=== PATIENT | female | born 1960 | race African-American/Black ===

== ENCOUNTER 2017-11-27 13:53 | Inpatient (IN) | payer OTHER ==
[2017-11-27 16:45] VITALS: BMI 32.2
--- NOTE | 2017-11-27 16:55 | HP ---
Admission ROS [facility] - [facility] Allergies/Adverse Reactions: Allergies Allergy/AdvReac Type Severity Reaction Status Date / Time No Known Allergies Allergy Verified 11/27/17 17:28 History of Present Illness: patient here requesting rehab from opiates and benzo use , s/p detox at [facility] , d/c 11/26/17 , states currently some tremors and chills . denies use since d/c heroin use : 1 bundle/day x 30 yrs , denies ivdu benzo use : klonopin, ambien utox mop, bzo, mtd david 0.000 p71 pmhx : denies pshx : denies psych : depresion tobacco : 3 cigs / day ,refuses nrt Exam Limitations: No Limitations - Ebola screening Have you traveled outside of the country in the last 21 days: No Have you had contact with anyone from an Ebola affected area: No Have you been sick,other than usual withdrawal symptoms: No Do you have a fever: No - Review of Systems Constitutional: Chills EENT: reports: No Symptoms Reported, Other (reading glasses) Respiratory: reports: No Symptoms reported Cardiac: reports: No Symptoms Reported GI: reports: No Symptoms Reported : reports: No Symptoms Reported Musculoskeletal: reports: No Symptoms Reported Integumentary: reports: No Symptoms Reported Neuro: reports: No Symptoms reported Endocrine: reports: No Symptoms Reported Hematology: reports: No Symptoms Reported Psychiatric: reports: Judgement Intact, Orientated x3, Anxious, other (see hpi) Other Systems: Reviewed and Negative Patient History - Patient Medical History Hx Anemia: Yes (NO CURRENT MEDS) Hx Asthma: No Hx Chronic Obstructive Pulmonary Disease (COPD): No Hx Cardiac Disorders: No Hx Hypertension: No Hx Hypercholesterolemia: No HX Cerebrovascular Accident: No Hx Seizures: No Hx Diabetes: No Hx Gastrointestinal Disorders: No Hx Genitourinary Disorders: No Hx Sexually Transmitted Disorders: No Hx Renal Disease (ESRD): No Hx Thyroid Disease: No Hx Human Immunodeficiency Virus (HIV): No (NEGATIVE HX) Hx Hepatitis C: No Hx Depression: Yes Hx Suicide Attempt: No Hx Schizophrenia: No - Patient Surgical History Past Surgical History: No - PPD History Date: 09/10/14 - Reproductive History Last Menstrual Period: 02/03/01 - Smoking Cessation Smoking history: Current every day smoker Have you smoked in the past 12 months: Yes Aproximately how many cigarettes per day: 20 Cigars Per Day: 0 Hx Chewing Tobacco Use: No Initiated information on smoking cessation: No - Substances Abused Heroin Route: Inhalation Frequency: Daily Amount used: 10-20 BAGS Age of first use: 22 Date of Last Use: 11/22/17 Benzodiazepine (Klonopin) Route: Oral Frequency: Daily Amount used: 4MG Age of first use: 56 Date of Last Use: 11/22/17 Family Disease History - Family Disease History Family Disease History: Other: Mother (HTN, CVA) Admission Physical Exam [facility] - Vital Signs Vital Signs: Vital Signs - 24 hr 11/27/17 16:42 Temperature 97.5 F L Pulse Rate 71 Respiratory 18 Rate Blood Pressure 118/72 - Physical General Appearance: Yes: Within Normal Limits, Nourished, Appropriately Dressed , Mild Distress HEENTM: Yes: EOMI, Hearing grossly Normal, Normal ENT Inspection, Normocephalic , Normal Voice, DONYA, Pharynx Normal, Other (upper and lower dentures dilated pupils) Respiratory: Yes: Within Normal Limits, Chest Non-Tender, Lungs Clear, Normal Breath Sounds, No Respiratory Distress, No Accessory Muscle Use Neck: Yes: Within Normal Limits, No masses,lesions,Nodules, Trachea in good position Cardiology: Yes: Regular Rhythm, Regular Rate, S1, S2, Diastolic Murmur Abdominal: Yes: Within Normal Limits, Normal Bowel Sounds, Non Tender, Flat, Soft Genitourinary: Yes: Within Normal Limits Back: Yes: Within Normal Limits, Normal Inspection Musculoskeletal: Yes: Within Normal Limits, full range of Motion, Gait Steady, Pelvis Stable Extremities: Yes: Within Normal Limits, Normal Capillary Refill, Normal Inspection, Normal Range of Motion, Non-Tender Neurological: Yes: Within Normal Limits, Fully Oriented, Alert, Motor Strength 5 /5, Normal Mood/Affect, Normal Response Integumentary: Yes: Within Normal Limits, Normal Color, Dry, Warm - Diagnostic (1) Nicotine dependence Current Visit: No Status: Acute Qualifiers: Nicotine product type: cigarettes Substance use status: uncomplicated Qualified Code(s): F17.210 - Nicotine dependence, cigarettes, uncomplicated (2) Opioid dependence Current Visit: No Status: Acute Qualifiers: Substance use status: uncomplicated Qualified Code(s): F11.20 - Opioid dependence, uncomplicated S Breath Alcohol Content Breath Alcohol Content: 0 Urine Pregancy Test - Result Urine Test Results: Negative- NO Line Present Urine Drug Screen - Results Drug Screen Negative: No Urine Drug Screen Results: OPI-Opiates, BZO-Benzodiazepines, MTD-Methadone
[2017-11-27] MEDS ORDERED: IBUPROFEN 400 MG TABLET (FP) PO PRN (17:01)
[2017-11-27] MEDS ORDERED: MAGNESIUM CITRATE 300 ML BOTTLE PO PRN (17:01)
[2017-11-27] MEDS ORDERED: LOPERAMIDE HCL 2 MG CAPSULE PO PRN (17:01)
[2017-11-27] MEDS ORDERED: MAGNESIUM HYDROX 2400MG/30ML ORAL SUSPENSION 30 ML CUP PO PRN (17:01)
[2017-11-27] MEDS ORDERED: MAG HYDROX/AL HYDROX/SIMETH 30 ML UNIT-DOSE CUP PO PRN (17:01)
[2017-11-27] MEDS ORDERED: ACETAMINOPHEN 325 MG TABLET (FP) PO PRN (17:01)
[2017-11-27] MEDS ORDERED: P-EPHED 60MG/TRIPROLIDI 2.5MG TABLET PO PRN (17:01)
[2017-11-27] MEDS ORDERED: guaiFENesin/D-METHORPHAN HB 10 ML UNIT-DOSE CUPS PO PRN (17:01)
[2017-11-27] MEDS ORDERED: MENTHOL/PHENOL 1 EACH UD MM PRN (17:01)
[2017-11-27] MEDS: THIAMINE HCL 100 MG TABLET (FP) PO SCH (22:35)
--- NOTE | 2017-11-28 08:36 | HP ---
Psychiatrist Admission - Data Date of interview: 11/28/17 Admission source: [facility] detox Identifying data: This is the first admission to [address] [place] [address] for this 57 years old AA single mother of 4 adult children, resides with her 26 yo son,supported by [facility]. Medical History: History of anemia. Psychiatric History: Patient has long history of depression,anxiety,mood instabilty.she started to see a psychiatrist in her early 40 th to address drug use,mood instability.She was dx with Mood disorder,Bipolar disorder.patient reports one psychiatric hospitalization to [facility] about 3 years ago due to depressed mood,anxiety,drug abuse.She sees at [facility] in the [place].She is on Seroquel 100 mg po hs.She was also on Ambien,Clonopin PRN. Physical/Sexual Abuse/Trauma History: Patient is not willing to discuss this at present. Vital Signs: Vital Signs - 24 hr 11/27/17 11/28/17 11/28/17 16:42 00:30 07:10 Temperature 97.5 F L 98.1 F Pulse Rate 71 91 H Respiratory 18 16 18 Rate Blood Pressure 118/72 114/70 Allergies/Adverse Reactions: Allergies Allergy/AdvReac Type Severity Reaction Status Date / Time No Known Allergies Allergy Verified 11/27/17 17:28 Concur with the findings of this exam: Yes - Substance Abuse/Tx History Hx Alcohol Use: No Hx Substance Use: Yes (heroin (sniffing) since 24 yo,10-20 bags daily,Xanax since 24 yo) Substance Use Type: Heroin, Tranquilizers Hx Substance Use Treatment: Yes (no significant abstinence) Mental Status Exam - Mental Status Exam Alert and Oriented to: Time, Place, Person Cognitive Function: Grossly Intact Patient Appearance: Unkempt Mood: Anxious, Irritable Affect: Labile Patient Behavior: Restless, Guarded, Distractible Speech Pattern: Clear Voice Loudness: Normal Thought Process: Goal Oriented Thought Disorder: Not Present Hallucinations: Denies Suicidal Ideation: Denies Homicidal Ideation: Denies Insight/Judgement: Fair Sleep: Fair Appetite: Good Muscle strength/Tone: Normal Gait/Station: Normal Psychiatric Findings - Problem List ([place] 1, 2,3) (1) Nicotine dependence Current Visit: Yes Status: Chronic Qualifiers: Nicotine product type: cigarettes Substance use status: uncomplicated Qualified Code(s): F17.210 - Nicotine dependence, cigarettes, uncomplicated (2) Opioid dependence Current Visit: Yes Status: Chronic Qualifiers: Substance use status: uncomplicated Qualified Code(s): F11.20 - Opioid dependence, uncomplicated (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 Will monitor progress.
[2017-11-28] MEDS: PRENATAL VITAMINS W/ FOLIC ACID TABLET (FP) PO SCH ×2 (10:19→10:21)
[2017-11-28] MEDS: hydrOXYzine PAMOATE 50 MG CAPSULE (FP) PO PRN ×3 (12:02→21:15)
--- NOTE | 2017-11-28 13:30 | PN ---
[facility] Progress Note Note: Vital Signs Temperature 98.1 F 11/28/17 07:10 Pulse Rate 91 H 11/28/17 07:10 Respiratory Rate 18 11/28/17 07:10 Blood Pressure 114/70 11/28/17 07:10 O2 Sat by Pulse Oximetry (%) X-ray reports received from [facility] from x-ray re: two views on . Cxray results negative for acute pathology and findings are WNL. Continue to monitor
[2017-11-28 14:34] LABS: HEMATOCRIT 41.4 % (32.4-45.2); HEMOGLOBIN 13.4 GM/dL (10.7-15.3); MCH 29.5 pg (25.7-33.7); MCHC 32.5 g/dl (32.0-36.0); MEAN PLT VOLUME 8.7 fl (7.5-11.1); PLATELET COUNT 298 K/MM3 (134-434); RBC 4.55 M/mm3 (3.60-5.2); RDW 14.2 % (11.6-15.6); WHITE BLOOD COUNT 4.5 K/mm3 (4.0-10.0)
[2017-11-28 14:57] LABS: ALBUMIN 4.1 g/dl (3.4-5.0); ALK PHOS 101 U/L (45-117); ANION GAP 5 MMOL/L (8-16); BILIRUBIN,TOTAL 0.4 mg/dL (0.2-1); BLOOD UREA NITROGEN 21 mg/dL (7-18); CALCIUM 9.8 mg/dL (8.5-10.1); CHLORIDE 104 mmol/L (98-107); CO2 29 mmol/L (21-32); CREATININE 1.1 mg/dL (0.55-1.3); GLUCOSE,RANDOM 97 mg/dL (74-106); POTASSIUM 4.9 mmol/L (3.5-5.1); SGOT/AST 30 U/L (15-37); SGPT/ALT 53 U/L (13-61); SODIUM 137 mmol/L (136-145)
[2017-11-28] MEDS: THIAMINE HCL 100 MG TABLET (FP) PO SCH (21:15)
[2017-11-28] MEDS: QUEtiapine FUMARATE 100 MG TABLET (FP) PO SCH (21:16)
[2017-11-28] MEDS: DOXEPIN HCL 50 MG CAPSULE PO SCH (21:16)
[2017-11-29] MEDS: PRENATAL VITAMINS W/ FOLIC ACID TABLET (FP) PO SCH (10:33)
[2017-11-29] MEDS: hydrOXYzine PAMOATE 50 MG CAPSULE (FP) PO PRN ×2 (10:34→19:12)
--- NOTE | 2017-11-29 15:19 | PN ---
S Progress Note Note: In opiate and benzo remission. CBCD WBC 4.5 K/mm3 (4.0-10.0) 11/28/17 11:20 RBC 4.55 M/mm3 (3.60-5.2) 11/28/17 11:20 Hgb 13.4 GM/dL (10.7-15.3) 11/28/17 11:20 Hct 41.4 % (32.4-45.2) 11/28/17 11:20 MCV 91.0 fl (80-96) 11/28/17 11:20 MCHC 32.5 g/dl (32.0-36.0) 11/28/17 11:20 RDW 14.2 % (11.6-15.6) 11/28/17 11:20 Plt Count 298 K/MM3 (134-434) D 11/28/17 11:20 MPV 8.7 fl (7.5-11.1) 11/28/17 11:20 CMP Sodium 137 mmol/L (136-145) 11/28/17 11:20 Potassium 4.9 mmol/L (3.5-5.1) 11/28/17 11:20 Chloride 104 mmol/L (98-107) 11/28/17 11:20 Carbon Dioxide 29 mmol/L (21-32) 11/28/17 11:20 Anion Gap 5 MMOL/L (8-16) L 11/28/17 11:20 BUN 21 mg/dL (7-18) H 11/28/17 11:20 Creatinine 1.1 mg/dL (0.55-1.3) 11/28/17 11:20 Creat Clearance w eGFR 50.84 (>60) 11/28/17 11:20 Random Glucose 97 mg/dL (74-106) 11/28/17 11:20 Calcium 9.8 mg/dL (8.5-10.1) 11/28/17 11:20 Total Bilirubin 0.4 mg/dL (0.2-1) 11/28/17 11:20 AST 30 U/L (15-37) 11/28/17 11:20 ALT 53 U/L (13-61) 11/28/17 11:20 Alkaline Phosphatase 101 U/L (45-117) 11/28/17 11:20 Total Protein 8.0 g/dl (6.4-8.2) 11/28/17 11:20 Albumin 4.1 g/dl (3.4-5.0) 11/28/17 11:20 Labs reviewed. Continue rehab. Order u/a.
[2017-11-29] MEDS: MELATONIN 5 MG TABLETS PO PRN (21:17)
[2017-11-29] MEDS: QUEtiapine FUMARATE 100 MG TABLET (FP) PO SCH (21:17)
[2017-11-29] MEDS: DOXEPIN HCL 50 MG CAPSULE PO SCH (21:17)
[2017-11-29] MEDS: THIAMINE HCL 100 MG TABLET (FP) PO SCH (21:17)
[2017-11-30] MEDS: PRENATAL VITAMINS W/ FOLIC ACID TABLET (FP) PO SCH (10:33)
[2017-11-30] MEDS: hydrOXYzine PAMOATE 50 MG CAPSULE (FP) PO PRN (10:33)
--- NOTE | 2017-11-30 14:50 | EKG ---
Test Reason : Blood Pressure : / mmHG Vent. Rate : 066 BPM Atrial Rate : 066 BPM P-R Int : 168 ms QRS Dur : 080 ms QT Int : 410 ms P-R-T Axes : 056 048 043 degrees QTc Int : 429 ms SINUS RHYTHM WITH MARKED SINUS ARRHYTHMIA OTHERWISE NORMAL ECG NO PREVIOUS ECGS AVAILABLE Confirmed by TACOS WHITTAKER MD ([id number]) on 11/30/2017 2:50:20 PM Referred By: Confirmed By:TACOS WHITTAKER MD
[2017-11-30] MEDS: QUEtiapine FUMARATE 100 MG TABLET (FP) PO SCH (21:18)
[2017-11-30] MEDS: MELATONIN 5 MG TABLETS PO PRN (21:18)
[2017-11-30] MEDS: DOXEPIN HCL 50 MG CAPSULE PO SCH (21:18)
[2017-11-30] MEDS: THIAMINE HCL 100 MG TABLET (FP) PO SCH (21:18)
[2017-11-30 22:12] LABS: URINE APPEARANCE CLOUDY; URINE BILIRUBIN NEGATIVE (<2.0 mg/dL); URINE COLOR YELLOW; URINE GLUCOSE (UA) NEGATIVE (NEGATIVE); URINE KETONE NEGATIVE (NEGATIVE); URINE LEUK ESTERASE NEGATIVE (NEGATIVE); URINE NITRITE NEGATIVE (NEGATIVE); URINE PROTEIN NEGATIVE (NEGATIVE); URINE UROBILINOGEN NEGATIVE mg/dL (0.2-1.0)
[2017-12-01] MEDS: PRENATAL VITAMINS W/ FOLIC ACID TABLET (FP) PO SCH (10:07)
[2017-12-01] MEDS: hydrOXYzine PAMOATE 50 MG CAPSULE (FP) PO PRN (10:07)
[2017-12-01] MEDS: QUEtiapine FUMARATE 100 MG TABLET (FP) PO SCH (22:09)
[2017-12-01] MEDS: THIAMINE HCL 100 MG TABLET (FP) PO SCH (22:09)
[2017-12-01] MEDS: DOXEPIN HCL 50 MG CAPSULE PO SCH (22:09)
[2017-12-02] MEDS: hydrOXYzine PAMOATE 50 MG CAPSULE (FP) PO PRN (09:59)
[2017-12-02] MEDS: PRENATAL VITAMINS W/ FOLIC ACID TABLET (FP) PO SCH (09:59)
[2017-12-02] MEDS: DOXEPIN HCL 50 MG CAPSULE PO SCH (21:42)
[2017-12-02] MEDS: THIAMINE HCL 100 MG TABLET (FP) PO SCH (21:42)
[2017-12-02] MEDS: QUEtiapine FUMARATE 100 MG TABLET (FP) PO SCH (21:42)
[2017-12-03 06:32] VITALS: BP 121/82; PULSE 84; TEMP 98
--- NOTE | 2017-12-03 09:11 | PN ---
Psychiatric Progress Note Vital Signs: Vital Signs Period Temp Pulse Resp BP Sys/[place] Pulse Ox Last 24 Hr 98.0 F 84 16-18 121/82 Date of Session: 12/03/17 Chief Complaint:: Discharge visit HPI: Opioid,Anxiolytic dependence comorbid with Bipolar disorder. ROS: H/o Anemia. Current Medications: Active Medications Generic Name Dose Route Start Last Admin Trade Name Freq PRN Reason Stop Dose Admin Acetaminophen 650 mg 11/27/17 17:01 Tylenol - PO Q4H PRN FEVER Al Hydroxide/Mg Hydroxide 30 ml 11/27/17 17:01 Mylanta Oral Suspension - PO Q6H PRN DYSPEPSIA Doxepin HCl 50 mg 11/28/17 22:00 12/02/17 21:42 Sinequan - PO 50 mg HS LA Administration Eucalyptus/Menthol/Phenol/Sorbitol 1 each 11/27/17 17:01 Cepastat Lozenge - MM Q4H PRN SORE THROAT Guaifenesin 10 ml 11/27/17 17:01 Robitussin Dm - PO Q6H PRN COUGH Hydroxyzine Pamoate 50 mg 11/27/17 17:01 12/02/17 09:59 Vistaril - PO 50 mg Q4H PRN Administration AGITATION Ibuprofen 400 mg 11/27/17 17:01 Motrin - PO Q6H PRN Pain level 4-6 Loperamide HCl 4 mg 11/27/17 17:01 Imodium - PO Q6H PRN DIARRHEA Magnesium Citrate 300 ml 11/27/17 17:01 Citroma - PO Q48H PRN CONSTIPATION Magnesium Hydroxide 30 ml 11/27/17 17:01 11/30/17 10:35 Milk Of Magnesia - PO 30 ml DAILY PRN Administration CONSTIPATION Melatonin 5 mg 11/27/17 22:00 11/30/17 21:18 Melatonin PO 5 mg HS PRN Administration INSOMNIA Multivit/Folic Acid/Iron 1 tab 11/28/17 10:00 12/02/17 09:59 Vitamins (Sjr) - PO 1 tab DAILY LA Administration Pseudoephedrine/Triprolidine 1 combo 11/27/17 17:01 Actifed - PO TID PRN NASAL CONGESTION Quetiapine Fumarate 100 mg 11/28/17 22:00 12/02/17 21:42 Seroquel - PO 100 mg HS LA Administration Thiamine HCl 100 mg 11/27/17 22:00 12/02/17 21:42 Vitamin B1 - PO 100 mg HS LA Administration Current Side Effect: No Lab tests ordered: No Lab tests reviewed: Yes Provider note:: Patient completed this program today.She has met her treatment goals and will continue to address her issues on outpatient basis at [facility].Patient will continue current medications as per plan.scripts for 30 days provided. Supportive therapy provided focusing on relapse prevention. Patient is stable for discharge today. Total face to face time:: 30 Mental Status Exam - Mental Status Exam Alert and Oriented to: Time, Place, Person Cognitive Function: Grossly Intact Patient Appearance: Well Groomed Mood: Hopeful, Euthymic Affect: Appropriate, Mood Congruent Patient Behavior: Cooperative Speech Pattern: Clear Voice Loudness: Normal Thought Process: Goal Oriented Thought Disorder: Not Present Hallucinations: Denies Suicidal Ideation: Denies Homicidal Ideation: Denies Insight/Judgement: Fair Sleep: Fair Appetite: Fair Muscle strength/Tone: Normal Gait/Station: Normal Psychiatric Treatment Plan - Problem List (1) Nicotine dependence Current Visit: Yes Qualifiers: Nicotine product type: cigarettes Substance use status: uncomplicated Qualified Code(s): F17.210 - Nicotine dependence, cigarettes, uncomplicated (2) Opioid dependence Current Visit: Yes Qualifiers: Substance use status: uncomplicated Qualified Code(s): F11.20 - Opioid dependence, uncomplicated (3) Sedative dependence Current Visit: Yes (4) History of anemia Current Visit: Yes (5) Bipolar disorder Current Visit: Yes
--- NOTE | 2017-12-03 15:37 | PN ---
[facility] Progress Note Note: REHAB COMPLETED. ALERT O X 3. NAD. FOLLOW UP WITH PCP FOR MEDICAL MANAGEMENT/ AFTERCARE PLANNED. Vital Signs - 24 hr 12/03/17 12/03/17 12/03/17 00:30 03:30 06:32 Temperature 98.0 F Pulse Rate 84 Respiratory 18 18 16 Rate Blood Pressure 121/82 Laboratory Tests 11/28/17 11/28/17 11/28/17 11:20 11:20 11:20 WBC 4.5 RBC 4.55 Hgb 13.4 Hct 41.4 MCV 91.0 MCH 29.5 MCHC 32.5 RDW 14.2 Plt Count 298 D MPV 8.7 Sodium 137 Potassium 4.9 Chloride 104 Carbon Dioxide 29 Anion Gap 5 L BUN 21 H Creatinine 1.1 Creat Clearance w eGFR 50.84 Random Glucose 97 Calcium 9.8 Total Bilirubin 0.4 AST 30 ALT 53 Alkaline Phosphatase 101 Total Protein 8.0 Albumin 4.1 Urine Color Urine Appearance Urine pH Ur Specific [place] Urine Protein Urine Glucose (UA) Urine Ketones Urine Blood Urine Nitrite Urine Bilirubin Urine Urobilinogen Ur Leukocyte Esterase RPR Titer Nonreactive 11/30/17 20:32 WBC RBC Hgb Hct MCV MCH MCHC RDW Plt Count MPV Sodium Potassium Chloride Carbon Dioxide Anion Gap BUN Creatinine Creat Clearance w eGFR Random Glucose Calcium Total Bilirubin AST ALT Alkaline Phosphatase Total Protein Albumin Urine Color Yellow Urine Appearance Cloudy Urine pH 5.0 D Ur Specific [place] 1.018 Urine Protein Negative Urine Glucose (UA) Negative Urine Ketones Negative Urine Blood Negative Urine Nitrite Negative Urine Bilirubin Negative Urine Urobilinogen Negative Ur Leukocyte Esterase Negative RPR Titer
== END 2017-12-03 09:15 | disposition home or self-care (01) | DRG 895 ==
LOC: YASAS 13:53 → Y3E 17:54
PROVIDERS: ADMIT Psychiatry & Neurology Psychiatry; ATTEND Psychiatry & Neurology Psychiatry
PROC: HZ42ZZZ Group Counseling for Substance Abuse Treatment, Cognitive-Behavioral (ICD-10-PCS; principal; 2017-11-27)
DX: F11.20 Opioid dependence, uncomplicated (principal); F13.20 Sedative, hypnotic or anxiolytic dependence, uncomplicated; F17.210 Nicotine dependence, cigarettes, uncomplicated; F31.9 Bipolar disorder, unspecified; F32.9 Major depressive disorder, single episode, unspecified; Z86.2 Personal history of diseases of the blood and blood-forming organs and certain disorders involving the immune mechanism
CPT/HCPCS: 36415; 80053; 81003; 85027; 86593; 93005; 93010